=== PATIENT | female | born 1940 | race Asian ===

== ENCOUNTER 2019-05-12 21:07 | Emergency (ER) | payer MEDICARE, OTHER ==
[~2019-05-12] VITALS: Ht 157.5 cm; Wt 54.4 kg
[2019-05-12] MEDS ORDERED: FAMOTIDINE 20 MG/2 ML VIAL IVP ONE (21:45)
[2019-05-12] MEDS ORDERED: IV NORMAL SALINE 1000ML BAG 1,000 ML IV ONE (21:45)
[2019-05-12] MEDS ORDERED: ONDANSETRON PF 4 MG/2 ML VIAL. IV ONE (21:45)
[2019-05-12 21:48] VITALS: BP 143/72
[2019-05-12 22:32] LABS: BASO % 0 % (0-3); EOS # 0.3 x10^3/uL (0.0-0.7); EOS % 2 % (0-3); HEMATOCRIT 34.7 % (36.0-47.0); HEMOGLOBIN 11.3 g/dL (12.0-15.5); LYMPH # 0.6 x10^3/uL (1.0-4.8); LYMPH % 4 % (24-48); MEAN CORPUSCULAR HEMOGLOBIN 33 pg (25-35); MEAN CORPUSCULAR HGB CONC 33 g/dL (31-37); MEAN CORPUSCULAR VOLUME 102 fL (79-100); MONO # 0.9 x10^3/uL (0.0-1.1); MONO % 6 % (0-9); NEUT # 14.1 x10^3/uL (1.8-7.7); NEUT % 89 % (31-73); PLATELET COUNT 488 x10^3/uL (140-400); RED BLOOD COUNT 3.42 x10^6/uL (3.50-5.40); RED CELL DISTRIBUTION WIDTH 18.4 % (11.5-14.5); WHITE BLOOD COUNT 15.8 x10^3/uL (4.0-11.0)
[2019-05-12 22:41] LABS: PROTHROMBIN TIME PATIENT 13.5 SEC (11.7-14.0)
[2019-05-12 22:42] LABS: CALCIUM 8.7 mg/dL (8.5-10.1); CREATININE 1.4 mg/dL (0.6-1.0); GFR 36.5; POTASSIUM 3.9 mmol/L (3.5-5.1)
--- NOTE | 2019-05-12 22:42 | PHYS DOC ---
Past Medical History Past Medical History: Other Additional Past Medical Histor: "cardiac problem- not sure what it is" Past Surgical History: Hysterectomy Additional Information: Denies smoking Alcohol Use: None Drug Use: None Adult General Chief Complaint Chief Complaint: ABDOMINAL PAIN HPI HPI Patient is a 78 y/o female with a history of cardiac symptoms from [facility] last wednesday, who presents to the ED with abdominal pain. She states that the pain is relieved after she defecates. Pt currently states she has no abdominal pain or any other complaints. Denies SOB, nausea, and vomiting. Pt is a poor historian. Review of Systems Review of Systems Constitutional: Denies fever or chills Eyes: Denies redness or eye pain HENT: Denies nasal congestion or sore throat Respiratory: Denies cough or shortness of breath Cardiovascular: Denies chest pain or palpitations GI: Reports abdominal pain, denies vomiting and nausea : Denies dysuria or hematuria Musculoskeletal: Denies back pain or joint pain Integument: Denies rash or skin lesions Neurologic: Denies headache, focal weakness or sensory changes Complete systems were reviewed and found to be within normal limits, except as documented in this note. Current Medications Current Medications Current Medications Medications (Trade) Dose Ordered Sig/Trevon Start Time Stop Time Status Last Admin Dose Admin Ciprofloxacin (Cipro) 500 mg 1X ONCE 05/13/19 00:00 05/13/19 00:01 DC Famotidine (Pepcid Vial) 20 mg 1X ONCE 05/12/19 21:45 05/12/19 21:46 DC 05/12/19 22:29 20 MG Info (CONTRAST GIVEN -- Rx MONITORING) 1 each PRN DAILY PRN 05/12/19 23:00 05/14/19 22:59 Iohexol (Omnipaque 300 Mg/ml) 75 ml 1X ONCE 05/12/19 23:00 05/12/19 23:01 DC Metronidazole (Flagyl) 500 mg 1X ONCE 05/13/19 00:00 05/13/19 00:01 DC Ondansetron HCl (Zofran) 4 mg 1X ONCE 05/12/19 21:45 05/12/19 21:46 DC 05/12/19 22:29 4 MG Sodium Chloride 1,000 ml @ 1,000 mls/hr 1X ONCE 05/12/19 21:45 05/12/19 22:44 DC 05/12/19 22:29 1,000 MLS/HR Allergies Allergies Allergies Uncoded Allergies Type Severity Reaction Last Updated Verified PENICILLIN Allergy Unknown 05/12/19 Physical Exam Physical Exam Constitutional: Well developed, well nourished, no acute distress, non-toxic appearance HENT: Normocephalic, atraumatic, oropharynx moist Neck: Normal range of motion, no tenderness, supple Cardiovascular: Heart rate normal, regular rhythm Lungs & Thorax: Bilateral breath sounds clear to auscultation, no wheezing Abdomen: Soft, no tenderness Skin: Warm, dry, no erythema, no rash Back: No tenderness, no CVA tenderness Extremities:Cast on right wrist. Neurologic: Alert and oriented X 3, normal motor function, normal sensory function, no focal deficits noted Current Patient Data Vital Signs Vital Signs Date Time Temp Pulse Resp B/P (MAP) Pulse Ox O2 Delivery O2 Flow Rate FiO2 05/12/19 21:48 97.3 92 16 143/72 (95) 96 Room Air 97.3 Lab Values Laboratory Tests Test 05/12/19 22:22 White Blood Count 15.8 x10^3/uL (4.0-11.0) H Red Blood Count 3.42 x10^6/uL (3.50-5.40) L Hemoglobin 11.3 g/dL (12.0-15.5) L Hematocrit 34.7 % (36.0-47.0) L Mean Corpuscular Volume 102 fL (79-100) H Mean Corpuscular Hemoglobin 33 pg (25-35) Mean Corpuscular Hemoglobin Concent 33 g/dL (31-37) Red Cell Distribution Width 18.4 % (11.5-14.5) H Platelet Count 488 x10^3/uL (140-400) H Neutrophils (%) (Auto) 89 % (31-73) H Lymphocytes (%) (Auto) 4 % (24-48) L Monocytes (%) (Auto) 6 % (0-9) Eosinophils (%) (Auto) 2 % (0-3) Basophils (%) (Auto) 0 % (0-3) Neutrophils # (Auto) 14.1 x10^3/uL (1.8-7.7) H Lymphocytes # (Auto) 0.6 x10^3/uL (1.0-4.8) L Monocytes # (Auto) 0.9 x10^3/uL (0.0-1.1) Eosinophils # (Auto) 0.3 x10^3/uL (0.0-0.7) Basophils # (Auto) 0.0 x10^3/uL (0.0-0.2) Segmented Neutrophils % 71 % (35-66) H Band Neutrophils % 17 % (0-9) H Lymphocytes % 6 % (24-48) L Monocytes % 5 % (0-10) Eosinophils % 1 % (0-5) Platelet Estimate Adequate (ADEQUATE) Prothrombin Time 13.5 SEC (11.7-14.0) Prothrombin Time INR 1.1 (0.8-1.1) Activated Partial Thromboplast Time 27 SEC (24-38) Sodium Level 139 mmol/L (136-145) Potassium Level 3.9 mmol/L (3.5-5.1) Chloride Level 102 mmol/L (98-107) Carbon Dioxide Level 24 mmol/L (21-32) Anion Gap 13 (6-14) Blood Urea Nitrogen 26 mg/dL (7-20) H Creatinine 1.4 mg/dL (0.6-1.0) H Estimated GFR (Cockcroft-Gault) 36.5 BUN/Creatinine Ratio 19 (6-20) Glucose Level 110 mg/dL (70-99) H Lactic Acid Level 1.3 mmol/L (0.4-2.0) Calcium Level 8.7 mg/dL (8.5-10.1) Magnesium Level 2.5 mg/dL (1.8-2.4) H Total Bilirubin 0.5 mg/dL (0.2-1.0) Aspartate Amino Transferase (AST) 25 U/L (15-37) Alanine Aminotransferase (ALT) 28 U/L (14-59) Alkaline Phosphatase 246 U/L (46-116) H Creatine Kinase 39 U/L (26-192) Creatine Kinase MB (Mass) 0.8 ng/mL (0.0-3.6) Creatine Kinase MB Relative Index % (0-4) Troponin I Quantitative < 0.017 ng/mL (0.000-0.055) Total Protein 7.0 g/dL (6.4-8.2) Albumin 3.4 g/dL (3.4-5.0) Albumin/Globulin Ratio 0.9 (1.0-1.7) L Lipase 118 U/L (73-393) Laboratory Tests 05/12/19 22:22 Laboratory Tests 05/12/19 22:22 EKG EKG @2136 NSR at 91bpm, NO ST elevation, QRS 76ms, QT/QTc 374/462ms Radiology/Procedures Radiology/Procedures PROCEDURE: CT ABDOMEN PELVIS WO CONTRAST INDICATION: Abdomen pain and distention COMPARISON: None. TECHNIQUE: Axial CT images obtained through the abdomen and pelvis without contrast. Limited assessment of solid organ structures and vasculature secondary to lack of intravenous contrast.. One or more of the following individualized dose reduction techniques were utilized for this examination: 1. Automated exposure control; 2. Adjustment of the mA and/or kV according to patient size; 3. Use of iterative reconstruction technique. FINDINGS: There is some linear opacities at the lung bases. Partially visualized thoracic aorta measures at least 37 mm within ascending portion. Coronary artery calcific atherosclerosis. Calcific atherosclerosis throughout the vasculature, severe. No intrahepatic bile duct dilation. No peripancreatic fluid collection. Spleen is unremarkable. No left-sided hydronephrosis. No right-sided hydronephrosis. There are couple of exophytic low-density lesions of the left kidney measuring up to about 20 mm. May be cystic in nature. Urinary bladder is partially distended. Colonic diverticulosis. No dilated loops of bowel to suggest obstruction. Fat-containing structure abdominal loops of small bowel on the right measuring 22 mm. There is some questionable mild haziness the fat adjacent to the sigmoid colon. At the right upper thigh musculature posteriorly there is a fat-containing lesion measuring approximately 61 x 61 mm. Degenerative changes the spine with multilevel central canal and neural foraminal stenosis. Fracture of the superior endplate of L1 with mild loss of height. Mild compression deformity of T11. There is also a lucency through the spinous process of T12. Pars defects L5. IMPRESSION: * Colonic diverticulosis. There is some questionable mild haziness the fat adjacent to the sigmoid colon therefore a mild diverticulitis is not excluded but this is a questionable finding. * Fracture through the superior endplate of L1 as well as the spinous process of T12. Would correlate with symptoms within the region since this could be acute if the patient has pain within the area. There some additional compression deformities identified including at T11 of unknown age. * Fat-containing lesion right upper thigh musculature. Most common cause would be a lipoma but follow-up could be obtained to ensure no growth to exclude a higher grade cause such as liposarcoma. * There is also a fat-containing lesion suspected within the abdomen. Could be a lipoma but would consider obtaining a follow-up to ensure no growth to exclude higher grade lesion. * Severe calcific atherosclerosis. * Low-density renal lesions. Could be cystic in nature but cannot exclude complex component on this exam. If further clarification is desired a nonemergent renal protocol CT ultrasound or MRI could BE obtained. * There is subcutaneous stranding of the fat of the right flank. Would correlate with symptoms in the region. Causes such as a soft tissue contusion are within the differential if the patient had trauma to the area Electronically signed by: Minh Daly MD (05/12/2019 11:36 PM) [facility] Course & Med Decision Making Course & Med Decision Making Pt is a 78 y/o female who presents with abdominal pain that has been relieved by defecation. Pt is a poor historian. CT reveals colonic diverticulosis, fat containing lesion on right upper thigh musculature, fracture through superior endplate of L1 as well as the spinous process T12, severe calcific atheroscleoriss, low density renal lesions, subcutaneous stranding of the fat of the right flank. WBC 15.8, Hgb 11.3, Plan for discharge back to facility. Dragon Disclaimer Dragon Disclaimer This electronic medical record was generated, in whole or in part, using a voice recognition dictation system. Departure Departure Impression: Primary Impression: Diverticulitis Additional Impression: Constipation Disposition: 01 HOME, SELF-CARE Condition: STABLE Referrals: AJ ZAMUDIO MD (PCP) EVELYNE MATHUR MD Patient Instructions: Constipation, Adult, [id number], Diverticulitis, [id number] Scripts Sennosides/Docusate Sodium (Colace 2-in-1 Tablet) 1 Each Tablet 1 TAB PO BID PRN for CONSTIPATION, #30 TAB 0 Refills Prov: NIKUNJ MAXWELL DO 05/12/19 Metronidazole (FLAGYL) 500 Mg Tablet 500 MG PO TID for 7 Days, #21 TAB Prov: NIKUNJ MAXWELL DO 05/12/19 Ciprofloxacin Hcl (CIPRO) 500 Mg Tablet 1 TAB PO BID, #14 TAB Prov: NIKUNJ MAXWELL DO 05/12/19 Problem Qualifiers Additional Impression: Constipation Constipation type: unspecified constipation type Qualified Codes: K59.00 - Constipation, unspecified NIKUNJ MAXWELL DO May 12, 2019 22:42
[2019-05-12 22:50] LABS: ALBUMIN 3.4 g/dL (3.4-5.0); ALBUMIN/GLOBULIN RATIO 0.9 (1.0-1.7); MAGNESIUM 2.5 mg/dL (1.8-2.4); TOTAL BILIRUBIN 0.5 mg/dL (0.2-1.0)
[2019-05-12 22:56] LABS: CREATINE KINASE 39 U/L (26-192)
[2019-05-12] MEDS ORDERED: IOHEXOL 300 MG/ML 100ML VIAL. IV ONE (23:00)
[2019-05-12] MEDS ORDERED: CONTRAST GIVEN. MC PRN (23:00)
[2019-05-12 23:26] LABS: % BANDS 17 % (0-9); % EOS 1 % (0-5); % LYMPHS 6 % (24-48); % MONOS 5 % (0-10); % SEGS 71 % (35-66); PLT ESTIMATE ADEQUATE (ADEQUATE)
--- NOTE | 2019-05-12 23:39 | RAD ---
INDICATION: Abdomen pain and distention COMPARISON: None. TECHNIQUE: Axial CT images obtained through the abdomen and pelvis without contrast. Limited assessment of solid organ structures and vasculature secondary to lack of intravenous contrast.. One or more of the following individualized dose reduction techniques were utilized for this examination: 1. Automated exposure control; 2. Adjustment of the mA and/or kV according to patient size; 3. Use of iterative reconstruction technique. FINDINGS: There is some linear opacities at the lung bases. Partially visualized thoracic aorta measures at least 37 mm within ascending portion. Coronary artery calcific atherosclerosis. Calcific atherosclerosis throughout the vasculature, severe. No intrahepatic bile duct dilation. No peripancreatic fluid collection. Spleen is unremarkable. No left-sided hydronephrosis. No right-sided hydronephrosis. There are couple of exophytic low-density lesions of the left kidney measuring up to about 20 mm. May be cystic in nature. Urinary bladder is partially distended. Colonic diverticulosis. No dilated loops of bowel to suggest obstruction. Fat-containing structure abdominal loops of small bowel on the right measuring 22 mm. There is some questionable mild haziness the fat adjacent to the sigmoid colon. At the right upper thigh musculature posteriorly there is a fat-containing lesion measuring approximately 61 x 61 mm. Degenerative changes the spine with multilevel central canal and neural foraminal stenosis. Fracture of the superior endplate of L1 with mild loss of height. Mild compression deformity of T11. There is also a lucency through the spinous process of T12. Pars defects L5. IMPRESSION: * Colonic diverticulosis. There is some questionable mild haziness the fat adjacent to the sigmoid colon therefore a mild diverticulitis is not excluded but this is a questionable finding. * Fracture through the superior endplate of L1 as well as the spinous process of T12. Would correlate with symptoms within the region since this could be acute if the patient has pain within the area. There some additional compression deformities identified including at T11 of unknown age. * Fat-containing lesion right upper thigh musculature. Most common cause would be a lipoma but follow-up could be obtained to ensure no growth to exclude a higher grade cause such as liposarcoma. * There is also a fat-containing lesion suspected within the abdomen. Could be a lipoma but would consider obtaining a follow-up to ensure no growth to exclude higher grade lesion. * Severe calcific atherosclerosis. * Low-density renal lesions. Could be cystic in nature but cannot exclude complex component on this exam. If further clarification is desired a nonemergent renal protocol CT ultrasound or MRI could BE obtained. * There is subcutaneous stranding of the fat of the right flank. Would correlate with symptoms in the region. Causes such as a soft tissue contusion are within the differential if the patient had trauma to the area Electronically signed by: Minh Daly MD (05/12/2019 11:36 PM) [facility]
[2019-05-12] MEDS ORDERED: METR500T PO (23:57)
[2019-05-12] MEDS ORDERED: SENN-121 PO (23:57)
[2019-05-12] MEDS ORDERED: CIPR500T94 PO (23:57)
[2019-05-13] MEDS ORDERED: CIPROFLOXACIN HCL 250 MG TABLET. PO ONE
[2019-05-13] MEDS ORDERED: metroNIDAZOLE 500 MG TABLET PO ONE
--- NOTE | 2019-05-13 10:08 | EKG ---
[facility] [address] [place] [address] Test Date: 2019-05-12 Test Time: 21:36:39 Pat Name: PATRICK MIRAMONTES Department: Room: Gender: F [employer] Operations Manager: : [id number] Requested By: NIKUNJ MAXWELL Order Number: [id number] Reading MD: Measurements Intervals [place] Rate: 91 P: 32 NC: 190 QRS: -10 QRSD: 76 T: 71 QT: 374 QTc: 461 Interpretive Statements SINUS RHYTHM LEFTWARD AXIS T ABNORMALITY IN HIGH LATERAL LEADS ABNORMAL ECG No previous ECG available for comparison
== END 2019-05-13 00:45 | disposition home or self-care (01) ==
LOC: ER 21:07
DX: K57.32 Diverticulitis of large intestine without perforation or abscess without bleeding (principal); K59.00 Constipation, unspecified; Z90.710 Acquired absence of both cervix and uterus; Z88.0 Allergy status to penicillin
CPT/HCPCS: 36415; 74176; 80053; 82553; 83605; 83690; 83735; 84484; 85007; 85025; 85610; 85730; 93005; 96374; 96375; 99285; J2405; J3490; J7030